=== PATIENT | female | born 1950 | race Caucasian/White ===

== ENCOUNTER 2021-04-25 10:25 | Emergency (ER) | payer OTHER ==
[~2021-04-25] VITALS: Ht 160 cm; Wt 61.2 kg
[2021-04-25] MEDS ORDERED: CANDESARTAN-HC1 EACH PO (10:51)
[2021-04-25] MEDS ORDERED: ATORVASTATIN CA10 MG PO (10:52)
[2021-04-25] MEDS ORDERED: CALCIUM 600-D31 EAC1 PO (10:52)
[2021-04-25] MEDS ORDERED: EVISTA60 MG PO (10:52)
[2021-04-25] MEDS ORDERED: CIDAFLEX TABLE1 EACH (10:53)
== END 2021-04-25 17:43 | disposition home or self-care (01) ==
LOC: ER 10:25 → EDBD 11:01 → ER 11:01
DX: S70.02XA Contusion of left hip, initial encounter (principal); S80.02XA Contusion of left knee, initial encounter; S00.83XA Contusion of other part of head, initial encounter; S70.12XA Contusion of left thigh, initial encounter; W18.31XA Fall on same level due to stepping on an object, initial encounter; Y93.01 Activity, walking, marching and hiking; Y92.520 Airport as the place of occurrence of the external cause; Y99.8 Other external cause status

== ENCOUNTER 2024-02-27 08:25 | Outpatient (CLI) | payer OTHER ==
[~2024-02-27 08:25] MED LIST: ATORVASTATIN CA10 MG PO; CALCIUM 600-D31 EAC1 PO; CANDESARTAN-HC1 EACH PO; CIDAFLEX TABLE1 EACH; EVISTA60 MG PO
== END 2024-02-27 08:33 | disposition home or self-care (01) ==
LOC: TOM 08:25
PROVIDERS: ATTEND Internal Medicine Hepatology
DX: K62.5 Hemorrhage of anus and rectum (principal)